=== PATIENT | male | born 1945 | race Hispanic/Latino ===

== ENCOUNTER 2019-09-29 09:43 | Outpatient (CLI) | payer MEDICARE ==
--- NOTE | 2019-09-29 11:01 | ULT ---
BILATERAL CAROTID DUPLEX ULTRASOUND: HISTORY: Stenosis of ICA TECHNIQUE: Grayscale, color-flow and spectral Doppler ultrasound imaging of the extracranial carotid artery syst ems was performed bilaterally. FINDINGS: There is plaque formation on both sides. The peak systolic velocity in the right ICA measures 88 cm/s with an end-diastolic velocity of 13 cm/ s and a systolic ratio of 0.95. The peak systolic velocity in the left ICA measures 175 cm/s with an end-diastolic velocity of 28 cm/s and a systolic ratio of 1.34. Flow in the right vertebral artery remains antegrade. No fluid is noted in the left vertebral artery, suspicious for occlusion. IMPRESSION: 1. Moderate (50-69%) stenosis of the left ICA. 2. Occlusion of the left vertebral artery.
== END 2019-09-29 09:44 | disposition home or self-care (01) ==
LOC: SCSULT 09:43
PROVIDERS: ATTEND Internal Medicine
DX: I65.22 Occlusion and stenosis of left carotid artery (principal); I65.02 Occlusion and stenosis of left vertebral artery
CPT/HCPCS: 93880

== ENCOUNTER 2023-01-17 07:35 | Inpatient (IN) | payer OTHER ==
[2023-01-17 08:06] VITALS: BMI 27.6
[2023-01-17] MEDS ORDERED: Acetaminophen 325 MG TAB PO PRN (11:20)
[2023-01-17] MEDS ORDERED: Sodium Chloride 0.9% 1,000 ML IV SCH (11:30)
[2023-01-17] MEDS ORDERED: hydrALAZINE 20 MG/ML VIAL SLOW IVP PRN (12:13)
[2023-01-17] MEDS ORDERED: hydrALAZINE 20 MG/ML VIAL SLOW IVP SCH (12:15)
[2023-01-17] MEDS ORDERED: Amlodipine 5 MG TAB PO SCH (12:15)
[2023-01-17] MEDS ORDERED: Carvedilol 3.125 MG TAB PO SCH (12:30)
[2023-01-17] MEDS ORDERED: Aspirin 325 mg Enteric Coated Tablet PO SCH (12:30)
[2023-01-17] MEDS: Carvedilol 3.125 MG TAB PO SCH (17:02)
[2023-01-17] MEDS: Atorvastatin Calcium 40 MG TAB PO SCH (20:22)
[2023-01-18] MEDS ORDERED: Aspirin 325 mg Enteric Coated Tablet PO SCH (09:00)
[2023-01-18] MEDS: Amlodipine 5 MG TAB PO SCH (09:12)
[2023-01-18] MEDS: Carvedilol 3.125 MG TAB PO SCH ×2 (09:12→18:25)
[2023-01-18 10:49] LABS: #Eosinphils 0.2 thou/uL (0.0-0.7); #Lymphocytes 1.8 thou/uL (1.20-3.40); #Monocytes 0.6 thou/uL (0.11-0.59); #Neutrophils 4.3 thou/uL (1.40-6.50); %Basophils 0.6 % (0.0-1.0); %Eosinophils 2.4 % (0.0-10.0); %Lymphocytes 26.7 % (21.0-51.0); %Monocytes 8.5 % (0.0-10.0); %Neutrophils 61.8 % (42.0-75.0); Hemoglobin 12.6 g/dL (14.0-18.0); Mean Corpuscular HGB CONC 32.2 g/dL (32.0-36.0); Mean Corpuscular Hemoglobin 29.4 pg (27.0-31.0); Mean Corpuscular Volume 91.4 fl (78.0-98.0); Mean Platelet Volume 10.8 fL (7.4-10.4); Platelet Count 155 10x3/uL (130-400); RBC Distribution Width 14.6 % (11.5-14.5); White Blood Cell (WBC) Count 6.9 10x3/uL (4.8-10.8)
[2023-01-18 11:17] LABS: Anion Gap 14 mmol/L (10-20); BUN (Urea Nitrogen) 26 mg/dL (8.4-25.7); Calc. Creatinine Clearance 44 mL/min (70-130); Calcium 8.8 mg/dL (7.8-10.44); Carbon Dioxide 21 mmol/L (23-31); Chloride 109 mmol/L (98-107); Estimated GFR 49; Glucose 86 mg/dL (83-110); Potassium 4.8 mmol/L (3.5-5.1); Sodium 139 mmol/L (136-145)
[2023-01-18] MEDS: Atorvastatin Calcium 40 MG TAB PO SCH (20:20)
[2023-01-19] MEDS: Carvedilol 3.125 MG TAB PO SCH ×2 (05:55→16:24)
[2023-01-19] MEDS ORDERED: Heparin 10,000 UNITS/ 10 ML VIAL ONE (06:18)
[2023-01-19] MEDS ORDERED: Lidocaine 1% (PF) 30 ML VIAL ONE (06:18)
[2023-01-19] MEDS ORDERED: FENTANYL 50 MCG/ML 1 ML VIAL ONE (06:57)
[2023-01-19] MEDS ORDERED: Midazolam HCl 2 mg/2 ml Vial ONE (06:57)
[2023-01-19] MEDS ORDERED: hydrALAZINE 20 MG/ML VIAL ONE ×2 (08:02→09:57)
[2023-01-19] MEDS: Amlodipine 5 MG TAB PO SCH (11:05)
[2023-01-19] MEDS: Aspirin 81 mg Enteric Coated Tablet PO SCH (11:05)
[2023-01-19] MEDS: Clopidogrel Bisulfate 75 MG TAB PO SCH (11:05)
[2023-01-19] MEDS: Atorvastatin Calcium 40 MG TAB PO SCH (20:23)
[2023-01-20] MEDS: Amlodipine 5 MG TAB PO SCH (08:24)
[2023-01-20] MEDS: Aspirin 81 mg Enteric Coated Tablet PO SCH (08:24)
[2023-01-20] MEDS: Clopidogrel Bisulfate 75 MG TAB PO SCH (08:24)
[2023-01-20] MEDS: Carvedilol 3.125 MG TAB PO SCH (08:25)
[2023-01-20 13:08] VITALS: BP 148/81; TEMP 98
== END 2023-01-20 13:02 | disposition home or self-care (01) | DRG 253 ==
LOC: T4-A 07:35
PROVIDERS: ADMIT Student in an Organized Health Care Education/Training Program; ATTEND Internal Medicine
PROC: 047N3DZ Dilation of Left Popliteal Artery with Intraluminal Device, Percutaneous Approach (ICD-10-PCS; principal; 2023-01-19)
PROC: 047H3ZZ Dilation of Right External Iliac Artery, Percutaneous Approach (ICD-10-PCS; 2023-01-19)
DX: I70.202 Unspecified atherosclerosis of native arteries of extremities, left leg (principal); N17.9 Acute kidney failure, unspecified; F17.210 Nicotine dependence, cigarettes, uncomplicated; N18.30 Chronic kidney disease, stage 3 unspecified; D63.1 Anemia in chronic kidney disease; E78.00 Pure hypercholesterolemia, unspecified; I12.9 Hypertensive chronic kidney disease with stage 1 through stage 4 chronic kidney disease, or unspecified chronic kidney disease; Z79.899 Other long term (current) drug therapy
CPT/HCPCS: 36415; 37221; 37224; 75625; 75716; 75736; 75774; 80048; 85025; 85347; 93005; 93010; 93306; 93880; C1725; C1760; C1769; C1876; C1887; C1894; J0360; J1644; J2001; J2250; J3010; J7050

== ENCOUNTER 2025-07-23 17:13 | Emergency (ER) | payer MEDICARE, OTHER ==
[~2025-07-23 17:13] MED LIST: Iopamidol 370 76% 100 ML VIAL ONE
[2025-07-23 18:22] LABS: #Basophils 0.05 10x3/uL (0.0-0.2); #Eosinophils 0.11 10x3/uL (0.0-0.7); #Monocytes 0.65 10x3/uL (0.11-0.59); #Neutrophils 5.11 10x3/uL (1.40-6.50); %Basophils 0.7 % (0.0-1.0); %Eosinophils 1.4 % (0.0-10.0); %Lymphocytes 22.1 % (21.0-51.0); %Monocytes 8.5 % (0.0-10.0); %Neutrophils 67.0 % (42.0-75.0); Hematocrit 39.3 % (42.0-52.0); Hemoglobin 12.7 g/dL (14.0-18.0); Mean Corpuscular Hemoglobin 27.7 pg (27.0-31.0); Mean Corpuscular Volume 85.6 fL (78.0-98.0); Platelet Count 210 10x3/uL (130-400); Red Blood Cell (RBC) Count 4.59 mill/uL (4.70-6.10); White Blood Cell (WBC) Count 7.63 10x3/uL (4.8-10.8)
[2025-07-23 18:35] LABS: ALT (SGPT) 7 U/L (Less than 45); AST (SGOT) 14 U/L (11-34); Albumin 3.8 g/dL (3.1-4.5); Alkaline Phosphatase 117 U/L (40-110); Anion Gap 16 mmol/L (10-20); BUN (Urea Nitrogen) 18 mg/dL (8.4-25.7); Bilirubin, Total 0.6 mg/dL (0.3-1.2); Calc. Creatinine Clearance 0 mL/min (70-130); Calcium 9.0 mg/dL (7.8-10.44); Carbon Dioxide 20 mmol/L (23-31); Chloride 106 mmol/L (98-107); Globulin 3.7 g/dL (2.4-3.5); Glucose 100 mg/dL (83-110); Lipase 17 U/L (8-78); Potassium 4.1 mmol/L (3.5-5.1); Sodium 138 mmol/L (136-145)
[2025-07-23 18:40] LABS: Bacteria/HPF None Seen HPF (None Seen); CAUTI Indications for Culture Pelvic or flank pain; Glucose, Urine (Dipstick) Normal (Negative); Leukocyte Negative Leu/uL (Negative); Protein, Urine (Dipstick) Negative (Neg-Trace); RBC/HPF 0-3 HPF (0-3); Specific Gravity, Urine 1.019 (1.002-1.036); WBC/HPF 0-3 HPF (0-3)
[2025-07-23 18:43] LABS: Urine Culture Reflex No No
== END 2025-07-23 22:10 | disposition home or self-care (01) ==
LOC: ERS 17:13
DX: R10.12 Left upper quadrant pain (principal); K85.90 Acute pancreatitis without necrosis or infection, unspecified; K43.9 Ventral hernia without obstruction or gangrene; I10 Essential (primary) hypertension; E78.00 Pure hypercholesterolemia, unspecified; Z87.891 Personal history of nicotine dependence; Z79.899 Other long term (current) drug therapy; Z79.82 Long term (current) use of aspirin
CPT/HCPCS: 74177; 80053; 81001; 83690; 85025; Q9967